=== PATIENT | female | born 1955 | race Caucasian/White ===

== ENCOUNTER 2018-06-06 07:41 | Day surgery (SDC) | payer OTHER ==
[2018-06-06] MEDS ORDERED: LIDOCAINE 2% (SDV) 5 ML INJ (08:56)
[2018-06-06] MEDS ORDERED: PROPOFOL 40 ML (08:56)
== END 2018-06-06 16:32 | disposition home or self-care (01) ==
LOC: GIL 07:41
DX: Z12.11 Encounter for screening for malignant neoplasm of colon (principal); E11.9 Type 2 diabetes mellitus without complications
CPT/HCPCS: 45378; 82962